=== PATIENT | female | born 1935 | race Caucasian/White ===

== ENCOUNTER 2016-10-09 08:49 | Day surgery (SDC) | payer MEDICARE, OTHER ==
--- NOTE | ~2016-10-09 | EGD ---
EGD REPORT [facility] [address] [id number] NAME: SANTI LEE : [birth year] STATUS : REG [facility]#: [id number] AGE: 80 ADM/REG DATE : 10/09/16 MR#: [id number] REPORT SERV DATE: 10/09/16 DICTATED BY: JONATHAN HERCULES DATE: 10/09/16 REPORT STATUS : Draft [facility]ANSCRIBED BY: [facility] DATE: 10/09/16 Endoscopy Center Patient Name: Santi Lee Date of : 1935 Attending MD: JONATHAN HERCULES MD Procedure Date No Time: 10/09/2016 Procedure: Upper GI endoscopy Indications: Abnormal CT of the GI tract Medicines: Sedation Required Anesthesia Staff Assistance Complications: No immediate complications. Estimated blood loss: Minimal. Procedure: Pre-Anesthesia Assessment: - ASA Grade Assessment: III - A patient with severe systemic disease. After obtaining informed consent, the endoscope was passed under direct vision. Throughout the procedure, the patient's blood pressure, pulse, and oxygen saturations were monitored continuously. The GIF H190 [id number] was introduced through the mouth, and advanced to the third part of duodenum. The upper GI endoscopy was accomplished without difficulty. The patient tolerated the procedure well. Findings: The examined esophagus was normal. A few dispersed, small non-bleeding erosions were found in the gastric antrum. There were stigmata of recent bleeding. Biopsies were taken with a cold forceps for histology. Hematin (altered blood/bqnitg-adirhe-fxtj material) was found in the entire examined stomach. Lavage of the area was performed using a moderate amount, resulting in clearance with excellent visualization. The examined duodenum was normal. Biopsies were taken with a cold forceps for histology. Impression: - Normal esophagus. - Non-bleeding erosive gastropathy. Biopsied. - Hematin (altered blood/dhrtcw-eaqxwk-buhw material) in the entire stomach. - Normal examined duodenum. Biopsied. Recommendation: - Await pathology results. - Patient has a contact number available for emergencies. The signs and symptoms of potential delayed complications were discussed with the patient. Return to normal activities tomorrow. Written discharge EGD REPORT [address] [address] NAME: SANTI LEE : [birth year] STATUS : REG [facility] PAT#: [id number] AGE: 80 ADM/REG DATE : 10/09/16 MR#: [id number] REPORT SERV DATE: 10/09/16 DICTATED BY: JONATHAN HERCULES DATE: 10/09/16 REPORT STATUS : Draft TRANSCRIBED BY: [employer] DATE: 10/09/16 instructions were provided to the patient. - Return to previous diet daily. - No aspirin, ibuprofen, naproxen, or other non-steroidal anti-inflammatory drugs. - Discharge patient to home. - Use sucralfate tablets 1 gram PO BID for 4 weeks. Procedure Code(s): --- Professional --- 32806, Esophagogastroduodenoscopy, flexible, transoral; with biopsy, single or multiple Diagnosis Code(s): --- Professional --- R93.3, Abnormal findings on diagnostic imaging of other parts of digestive tract K31.9, Disease of stomach and duodenum, unspecified CPT copyright 2013 [employer]. All rights reserved. The codes documented in this report are preliminary and upon slubber frame changer review may be revised to meet current compliance requirements. JONATHAN HERCULES MD 10/09/2016 10:53 AM This report has been signed electronically. Number of Addenda: 0 Note Initiated On: 10/09/2016 10:31 AM Scope Withdrawal Time 0 hours 0 minutes 0 seconds [address] [id number]
--- NOTE | ~2016-10-09 | EGD ---
EGD REPORT [facility] [address] [address] NAME: SANTI LEE : [birth year] STATUS : REG [facility]#: [id number] AGE: 80 ADM/REG DATE : 10/09/16 MR#: [id number] REPORT SERV DATE: 10/09/16 DICTATED BY: JONATHAN HERCULES DATE: 10/09/16 REPORT STATUS : Draft [facility]IBED [facility]: [facility] DATE: 10/09/16 Endoscopy Center Patient Name: Santi Lee Date of : 1935 Attending MD: JONATHAN HERCULES MD Procedure Date No Time: 10/09/2016 Procedure: Colonoscopy Indications: Incidental change in bowel habits noted Medicines: Sedation Required Anesthesia Staff Assistance Complications: No immediate complications. Estimated blood loss: Minimal. Procedure: Pre-Anesthesia Assessment: - ASA Grade Assessment: III - A patient with severe systemic disease. After I obtained informed consent, the scope was passed under direct vision. Throughout the procedure, the patient's blood pressure, pulse, and oxygen saturations were monitored continuously. The PCF [id number] was introduced through the anus and advanced to the cecum, identified by appendiceal orifice and ileocecal valve. The colonoscopy was performed without difficulty. The patient tolerated the procedure well. The quality of the bowel preparation was excellent. The ileocecal valve, appendiceal orifice and rectum were photographed. Findings: Multiple small-mouthed diverticula were found in the sigmoid colon. Four sessile polyps were found in the ascending colon. The polyps were 3 to 8 mm in size. These polyps were removed with a hot snare. Resection and retrieval were complete. A multi-lobulated polyp was found in the cecum. The polyp was 15 mm in size. The polyp was removed with a hot snare. Polyp resection was incomplete. The resected tissue was retrieved. Area was successfully injected with 2 mL of a 1:10,000 solution of epinephrine for drug delivery. Estimated blood loss was minimal. Impression: - Diverticulosis in the sigmoid colon. - Four 3 to 8 mm polyps in the ascending colon. Resected and retrieved. - One 15 mm polyp in the cecum. Incomplete resection. Resected tissue retrieved. Injected. Recommendation: - Patient has a contact number available for emergencies. The signs and symptoms of potential delayed complications were discussed with the patient. Return to EGD REPORT [address] [place]. [address] NAME: SANTI LEE : [birth year] STATUS : REG [facility]#: [id number] AGE: 80 ADM/REG DATE : 10/09/16 MR#: [id number] REPORT SERV DATE: 10/09/16 DICTATED BY: JONATHAN HERCULES DATE: 10/09/16 REPORT STATUS : Draft TRANSCRIBED BY: [employer] DATE: 10/09/16 normal activities tomorrow. Written discharge instructions were provided to the patient. - Clear liquid diet today. - Discharge patient to home. - Await pathology results. - Repeat colonoscopy in 3 months for surveillance based on pathology results. Procedure Code(s): --- Professional --- 69637, Colonoscopy, flexible, proximal to splenic flexure; with removal of tumor(s), polyp(s), or other lesion(s) by snare technique 09730, Colonoscopy, flexible, proximal to splenic flexure; with directed submucosal injection(s), any substance Diagnosis Code(s): --- Professional --- K57.30, Diverticulosis of large intestine without perforation or abscess without bleeding D12.0, Benign neoplasm of cecum D12.2, Benign neoplasm of ascending colon CPT copyright 2013 [employer]. All rights reserved. The codes documented in this report are preliminary and upon hhas review may be revised to meet current compliance requirements. JONATHAN HERCULES MD 10/09/2016 11:44 AM This report has been signed electronically. Number of Addenda: 0 Note Initiated On: 10/09/2016 10:32 AM Scope Withdrawal Time 0 hours 31 minutes 47 seconds [address] [place] [address]
[~2016-10-09 08:49] MED LIST: AMITIZA24 PO; ASAB PO; ATEN50 PO; CYMBALTA60 PO; DIABETA5 PO; EXFORGE1 TA3 PO; FOLIC ACID400 MC1 PO; GLUCCHONDR PO; GLUCPH PO; HYGROTON 25 MG25 MG PO; NEUR600 PO; PREDNISONE2.5 MG PO; PRILO PO; VITAMIN B-121000 MC1 SL; [UNRECOGNIZED DRUG - OTHER] PO
== END 2016-10-09 23:59 | disposition home or self-care (01) ==
LOC: DMU 08:49
PROVIDERS: Internal Medicine Gastroenterology
PROC: 0DB68ZX Excision of Stomach, Via Natural or Artificial Opening Endoscopic, Diagnostic (ICD-10-PCS; 2016-10-09)
PROC: 0DB98ZX Excision of Duodenum, Via Natural or Artificial Opening Endoscopic, Diagnostic (ICD-10-PCS; 2016-10-09)
PROC: 0DBK8ZZ Excision of Ascending Colon, Via Natural or Artificial Opening Endoscopic (ICD-10-PCS; principal; 2016-10-09 11:00)
PROC: 0DBH8ZZ Excision of Cecum, Via Natural or Artificial Opening Endoscopic (ICD-10-PCS; 2016-10-09 11:00)
DX: D12.2 Benign neoplasm of ascending colon (principal); K29.60 Other gastritis without bleeding; D12.0 Benign neoplasm of cecum; K57.30 Diverticulosis of large intestine without perforation or abscess without bleeding; R93.3 Abnormal findings on diagnostic imaging of other parts of digestive tract; K31.9 Disease of stomach and duodenum, unspecified; I10 Essential (primary) hypertension; E11.9 Type 2 diabetes mellitus without complications; M19.90 Unspecified osteoarthritis, unspecified site; Z95.1 Presence of aortocoronary bypass graft; Z79.899 Other long term (current) drug therapy; Z79.84 Long term (current) use of oral hypoglycemic drugs; Z79.52 Long term (current) use of systemic steroids; Z79.82 Long term (current) use of aspirin; Z88.8 Allergy status to other drugs, medicaments and biological substances; Z91.041 Radiographic dye allergy status
CPT/HCPCS: 82962; 88305